=== PATIENT | female | born 1995 | race African-American/Black ===

== ENCOUNTER 2017-09-23 06:14 | Inpatient (IN) ==
[2017-09-23] MEDS ORDERED: ONDANSETRON 4 MG/2 ML VIAL IV PRN (06:38)
[2017-09-23] MEDS ORDERED: ACETAMINOPHEN 325 MG TABLET PO PRN (06:38)
[2017-09-23] MEDS ORDERED: MEPERIDINE 50 MG/1 ML VIAL IV PRN (06:38)
[2017-09-23] MEDS ORDERED: AMPICILLIN INJ 2,000 MG in SODIUM CHLORIDE 0.9% 100 ML IV ONE (06:39)
[2017-09-23] MEDS: LACTATED RINGERS 1,000 ML IV SCH ×2 (06:50→12:01)
[2017-09-23] MEDS ORDERED: OXYTOCIN/LR 20 UNIT/1,000 ML BAG IV SCH (07:00)
[2017-09-23 07:15] LABS: Basophils % 0.2 % (0.0-0.8); Eosinophils # 0.1 10*3/uL (0.0-0.87); Eosinophils % 1.1 % (0.00-10.9); Hematocrit 33.1 VOL% (35.7-47.0); Immature Granulocytes % 1.8 %; Immature Granulocytes Absolute 0.12 #; Lymphocytes # 2.3 10*3/uL (1.4-4.0); Lymphocytes % 34.9 % (21.3-54.2); Mean Corpuscular HGB Conc 33.2 GM/DL (32-36); Mean Corpuscular Hemoglobin 27 PG (27-34); Mean Corpuscular Volume 79.8 FL (87-102); Mean Platelet Volume 10.6 FL (9.6-12.0); Monocytes # 0.6 10*3/uL (0.11-0.8); Monocytes % 8.6 % (1.7-12.7); Neutrophils # 3.5 10*3/uL (1.4-7.4); Neutrophils % 53.4 % (38.7-73.9); Platelet Count 207 T/CUMM (130-400); Red Blood Count 4.15 MC/CUMM (3.8-5.5); Red Cell Distribution Width 15.8 % (9.3-17.3); White Blood Count 6.6 T/CUMM (4-12)
[2017-09-23 07:43] LABS: Albumin 2.7 G/DL (3.4-5.0); Bilirubin,Total 0.6 MG/DL (0.2-1.0); Calcium 8.4 MG/DL (8.5-10.1); Osmolality,Calculated 277.3 MOS/KG (273-304); Potassium 3.7 MMOL/L (3.5-5.1); Total Protein 5.8 G/DL (6.4-8.3)
[2017-09-23] MEDS ORDERED: LACTATED RINGERS 1,000 ML IV ONE (09:48)
[2017-09-23] MEDS ORDERED: FAMOTIDINE 20 MG/2 ML VIAL IV ONE (09:48)
[2017-09-23] MEDS ORDERED: CITRIC ACID/SODIUM CITRATE 30 ML UDCUP PO ONE (09:48)
[2017-09-23] MEDS ORDERED: PROMETHAZINE 25 MG/1 ML VIAL IM ONE (09:49)
[2017-09-23] MEDS ORDERED: diphenhydrAMINE 50 MG/1 ML VIAL IV PRN ×2 (09:49)
[2017-09-23] MEDS ORDERED: ePHEDrine 50 MG/ML AMP IV PRN (09:49)
[2017-09-23] MEDS ORDERED: hydrOXYzine HCL 25 MG/1 ML VIAL IM PRN (09:49)
[2017-09-23] MEDS ORDERED: fentaNYL 2 MCG/ROPIV 0.2% EPID 150 ML EPIDURAL SCH (10:00)
[2017-09-23] MEDS: AMPICILLIN INJ 1,000 MG in SODIUM CHLORIDE 0.9% 100 ML IV SCH ×2 (11:30→15:40)
[2017-09-23 13:18] LABS: Apearance,Urine CLEAR (Clear); Bacteria,Urine Occasional /HPF (Few); Bilirubin,Urine Negative (Negative); Blood, Urine Negative (Negative); Glucose,Urine (UA) Negative (Negative); Ketones,Urine 20 mg/dL (Negative); Mucus,Urine Occasional /LPF (Occasional); Nitrite,Urine Negative (Negative); Protein,Urine Negative; Urine Color Straw (Yellow); Urine Specific Gravity 1.008 (1.001-1.035); Urine Urobilinogen < 2.0 EU/DL (0.2-1.0); WBC,Urine <1 /HPF (0-6)
[2017-09-23] MEDS ORDERED: miSOPROStol 200 MCG TABLET ONE (15:58)
[2017-09-23] MEDS ORDERED: METHYLERGONOVINE 0.2 MG/1 ML AMP ONE (15:58)
[2017-09-23] MEDS ORDERED: LIDOCAINE 1% 50 ML VIAL ONE (16:33)
[2017-09-23 17:08] LABS: Cord Venous Blood PCO2 39.7 MMHG; Cord Venous Blood PO2 31.6
[2017-09-23] MEDS ORDERED: OXYTOCIN/LR 20 UNIT/1,000 ML BAG IV ONE (18:20)
[2017-09-23] MEDS ORDERED: BISACODYL 10 MG SUPP RECTAL PRN (20:01)
[2017-09-23] MEDS ORDERED: BENZOCAINE 20%/MENTHOL 0.5% SPRAY 56 GM CAN TOP PRN (20:01)
[2017-09-23] MEDS ORDERED: LANOLIN 50% CREAM 0.3 OZ TUBE TOP PRN (20:01)
[2017-09-23] MEDS ORDERED: IBUPROFEN 800 MG TABLET PO PRN (20:01)
[2017-09-23] MEDS ORDERED: RHO(D) IMMUNE GLOBULIN 300 MCG SYRINGE IM ONE (20:01)
[2017-09-23] MEDS ORDERED: WITCH HAZEL PADS 100/JAR TOP PRN (20:01)
[2017-09-23] MEDS ORDERED: oxyCODONE/ACETAMINOPHEN 5-325 MG TABLET PO PRN ×2 (20:01)
[2017-09-23] MEDS ORDERED: DIPH/TET/ACEL PERT BOOSTER VACCINE 0.5 ML VIAL IM ONE (20:01)
[2017-09-23] MEDS ORDERED: HYDROCORTISONE 2.5% RECTAL CREAM 30 GM TUBE TOP PRN (20:01)
[2017-09-23] MEDS ORDERED: MEASLES/MUMPS/RUBELLA VACCINE 0.5 ML VIAL SUBCUT ONE (20:01)
[2017-09-23] MEDS: DOCUSATE SODIUM 100 MG CAPSULE PO SCH (20:13)
[2017-09-23] MEDS: ACETAMINOPHEN/CODEINE 300-30 MG TABLET PO PRN (21:11)
[2017-09-24 06:28] LABS: Basophils % 0.2 % (0.0-0.8); Eosinophils # 0.1 10*3/uL (0.0-0.87); Eosinophils % 0.6 % (0.00-10.9); Hematocrit 27.3 VOL% (35.7-47.0); Hemoglobin 9.1 GM/DL (12.0-16.0); Immature Granulocytes % 0.7 %; Immature Granulocytes Absolute 0.07 #; Lymphocytes # 2.6 10*3/uL (1.4-4.0); Lymphocytes % 25.6 % (21.3-54.2); Mean Corpuscular HGB Conc 33.3 GM/DL (32-36); Mean Corpuscular Hemoglobin 27 PG (27-34); Mean Corpuscular Volume 80.1 FL (87-102); Mean Platelet Volume 10.6 FL (9.6-12.0); Monocytes # 0.8 10*3/uL (0.11-0.8); Monocytes % 8.1 % (1.7-12.7); Neutrophils # 6.5 10*3/uL (1.4-7.4); Neutrophils % 64.8 % (38.7-73.9); Platelet Count 162 T/CUMM (130-400); Red Blood Count 3.41 MC/CUMM (3.8-5.5); Red Cell Distribution Width 15.9 % (9.3-17.3)
[2017-09-24] MEDS: ACETAMINOPHEN/CODEINE 300-30 MG TABLET PO PRN ×2 (07:51→17:07)
[2017-09-24] MEDS: FERROUS SULFATE 325 MG TABLET PO SCH ×2 (08:45→20:51)
[2017-09-24] MEDS: DOCUSATE SODIUM 100 MG CAPSULE PO SCH ×2 (08:45→20:51)
[2017-09-25 07:09] VITALS: BP 142/89
[2017-09-25] MEDS: DOCUSATE SODIUM 100 MG CAPSULE PO SCH (08:59)
[2017-09-25] MEDS: FERROUS SULFATE 325 MG TABLET PO SCH (08:59)
== END 2017-09-25 12:50 | disposition home or self-care (01) | DRG 540 ==
LOC: N.LDOUT 06:14 → N.LD 06:19 → N.OB 20:02
PROVIDERS: ADMIT Obstetrics & Gynecology; ATTEND Obstetrics & Gynecology